=== PATIENT | female | born 1985 | race Hispanic/Latino ===

== ENCOUNTER 2018-05-10 16:41 | Emergency (ER) | payer OTHER, SELFPAY ==
[2018-05-10 16:49] VITALS: BP 121/74; PULSE 74; RESP 16; TEMP 36.7; O2SAT 98
--- NOTE | 2018-05-10 16:55 | ED.ABDPAIN ---
HPI - Abdominal Pain <DO Que Dumont Last Filed: 05/11/18 06:57> General Chief Complaint: Abdominal Pain Stated Complaint: STOMACH PAINS Time Seen by Provider: 05/10/18 16:55 Source: patient Mode of arrival: ambulatory Limitations: no limitations History of Present Illness HPI narrative: Otherwise healthy 32-year-old female here for evaluation of epigastric abdominal pain. She states it has been going on for the past 24-36 hr. Woke up yesterday morning with the symptoms. She does have a history of reflex which she states this feels somewhat different from her normal reflex. No fevers. No urinary symptoms. No change in bowel. Related Data Home Medications Medication Instructions Recorded Confirmed norgestimate-ethinyl estradiol 1 tab PO DAILY 05/10/18 [Sprintec (28)] Previous Rx's Medication Instructions Recorded cephalexin [Keflex] 500 mg PO QID 5 Days #20 cap 05/10/18 Allergies Allergy/AdvReac Type Severity Reaction Status Date / Time No Known Drug Allergies Allergy Verified 05/10/18 16:52 Review of Systems <DO Que Dumont Last Filed: 05/11/18 06:57> Constitutional Denies fever(s) and Denies headache(s) ENT Ears, Nose, Mouth, and Throat: Denies headache(s) Cardiovascular Denies chest pain and Denies dyspnea Respiratory Denies dyspnea Gastrointestinal Gastrointestinal: Reports abdominal pain, Denies change in stool character, Denies coffee ground emesis, Denies nausea and Denies vomiting Genitourinary Denies dysuria Musculoskeletal Denies myalgias and Denies arthralgias Integumentary/Breasts Denies rash Neurologic Denies headache(s) PFSH <DO Que Dumont Last Filed: 05/11/18 06:57> Medical History Healthy adult (Acute) Social History marital status: lives independently: Yes Social History marital status: lives independently: Yes Exam <DO Que Dumont Last Filed: 05/11/18 06:57> Initial Vital Signs Initial Vital Signs: Vital Signs Temperature 98.1 F 05/10/18 16:49 Pulse Rate 74 05/10/18 16:49 Respiratory Rate 16 05/10/18 16:49 Blood Pressure 121/74 05/10/18 16:49 Pulse Oximetry 98 05/10/18 16:49 Const General: cooperative, healthy appearing, comfortable, well developed, well groomed and No acute distress Orientation: alert, awake and oriented x3 HENMT Head: normal to inspection and normocephalic Resp Effort & Inspection: normal respiratory effort Auscultation: clear to auscultation bilaterally Cardio Rate: regular rate Rhythm: regular rhythm Pulses: radial pulses present GI Inspection: non-distended Palpation: soft and No firm Skin Lesions: no lesions Rashes: no rashes Neuro General: alert, awake and oriented x3 Extrem General: normal to inspection and capillary refill normal Psych Appearance: grossly normal and well kempt <Seymour Howard DO - Last Filed: 05/10/18 22:32> Initial Vital Signs Initial Vital Signs: Vital Signs Temperature 98.1 F 05/10/18 16:49 Pulse Rate 74 05/10/18 16:49 Respiratory Rate 16 05/10/18 16:49 Blood Pressure 121/74 05/10/18 16:49 Pulse Oximetry 98 05/10/18 16:49 Course <Felipe Gunderson DO - Last Filed: 05/11/18 06:57> Orders Ordered: Discontinued Medications Al Hydrox/Mg Hydrox/Simethicone 20 ml/ Lidocaine HCl 15 ml 0 ml PO NOW ONE Stop: 05/10/18 17:09 Last Admin: 05/10/18 17:45 Dose: 35 ml Vital Signs - 8 hr 05/10/18 16:49 05/10/18 17:50 05/10/18 18:00 Temperature 98.1 F Pulse Rate 74 71 70 Respiratory Rate 16 17 Blood Pressure 121/74 Blood Pressure [Right Arm] 107/71 117/77 Pulse Oximetry 98 99 99 05/10/18 19:00 05/10/18 20:39 Temperature Pulse Rate 73 70 Respiratory Rate 16 Blood Pressure Blood Pressure [Right Arm] 106/67 119/60 Pulse Oximetry 99 99 <Seymour Howard DO - Last Filed: 05/10/18 22:32> Orders Ordered: Discontinued Medications Al Hydrox/Mg Hydrox/Simethicone 20 ml/ Lidocaine HCl 15 ml 0 ml PO NOW ONE Stop: 05/10/18 17:09 Last Admin: 05/10/18 17:45 Dose: 35 ml Reevaluation(s) Reevaluation #1: Received in sign-out from Dr. Gunderson, I have performed an independent history and Physical. Her ultrasound has returned and is not demonstrating any surgical biliary troubles. She and have had all of their questions answered to their satisfaction, have been given return precautions and a verbalized understanding of these precautions. Vital Signs - 8 hr 05/10/18 16:49 05/10/18 17:50 05/10/18 18:00 Temperature 98.1 F Pulse Rate 74 71 70 Respiratory Rate 16 17 Blood Pressure 121/74 Blood Pressure [Right Arm] 107/71 117/77 Pulse Oximetry 98 99 99 05/10/18 19:00 05/10/18 20:39 Temperature Pulse Rate 73 70 Respiratory Rate 16 Blood Pressure Blood Pressure [Right Arm] 106/67 119/60 Pulse Oximetry 99 99 MDM - Abdominal Pain <Felipe Gunderson DO - Last Filed: 05/11/18 06:57> Lab Data Attestation: I reviewed the patient's lab results. Result diagrams: 05/10/18 17:30 05/10/18 17:30 Lab Results 05/10/18 05/10/18 05/10/18 Range/Units 17:30 17:30 17:30 WBC 4.2 L (4.5-11.0) X10^3/uL RBC 4.25 (4.0-5.2) X10^6/uL Hgb 11.3 L (12.0-16.0) g/dL Hct 35.4 L (36-46) % MCV 83.1 (80-100) fL MCH 26.6 (26-34) PG MCHC 31.9 (30-36) % RDW 15.4 H (11.6-14.8) % Plt Count 291 (150-400) X10^3/uL Neut % (Auto) 60.3 (50-75) % Lymph % (Auto) 30.8 (25-40) % Taylor % (Auto) 6.5 (3-14) % Eos % (Auto) 1.7 L (2-4) % Baso % (Auto) 0.7 (0-2) % Neut # (Auto) 2500 (4445-8945) /uL Lymph # (Auto) 1300 (8076-2375) /uL Taylor # (Auto) 300 (0-900) /uL Eos # (Auto) 100 (0-450) /uL Baso # (Auto) 0 (0-100) /uL Sodium 137 (137-145) mmol/L Potassium 4.0 (3.4-5.1) mmol/L Chloride 106 (98-107) mmol/L Carbon Dioxide 24 (22-32) mmol/L BUN 7 (7-17) mg/dL Creatinine 0.70 (0.52-1.04) mg/dL Estimated GFR > 60.0 (>60) mL/min BUN/Creatinine Ratio 10.0 (6-22) Glucose 98 (70-100) mg/dL Calcium 9.4 (8.4-10.2) mg/dL Total Bilirubin 0.2 (0.2-1.3) mg/dL AST 18 (14-36) IU/L ALT 13 (9-52) IU/L Alkaline Phosphatase 80 (38-126) U/L Total Protein 7.4 (6.3-8.2) g/dL Albumin 4.1 (3.5-5.0) g/dL Globulin 3.3 (1.7-4.1) g/dL Albumin/Globulin Ratio 1.2 (1.0-2.8) Lipase 81 (23-300) U/L Urine RBC (0-5/HPF) Urine WBC (0-5/HPF) Ur Squamous Epith Cells Amorphous Sediment Urine Bacteria (None) Ur Culture Indicated? 05/10/18 Range/Units 17:38 WBC (4.5-11.0) X10^3/uL RBC (4.0-5.2) X10^6/uL Hgb (12.0-16.0) g/dL Hct (36-46) % MCV (80-100) fL MCH (26-34) PG MCHC (30-36) % RDW (11.6-14.8) % Plt Count (150-400) X10^3/uL Neut % (Auto) (50-75) % Lymph % (Auto) (25-40) % Taylor % (Auto) (3-14) % Eos % (Auto) (2-4) % Baso % (Auto) (0-2) % Neut # (Auto) (0511-9353) /uL Lymph # (Auto) (8581-2355) /uL Taylor # (Auto) (0-900) /uL Eos # (Auto) (0-450) /uL Baso # (Auto) (0-100) /uL Sodium (137-145) mmol/L Potassium (3.4-5.1) mmol/L Chloride (98-107) mmol/L Carbon Dioxide (22-32) mmol/L BUN (7-17) mg/dL Creatinine (0.52-1.04) mg/dL Estimated GFR (>60) mL/min BUN/Creatinine Ratio (6-22) Glucose (70-100) mg/dL Calcium (8.4-10.2) mg/dL Total Bilirubin (0.2-1.3) mg/dL AST (14-36) IU/L ALT (9-52) IU/L Alkaline Phosphatase (38-126) U/L Total Protein (6.3-8.2) g/dL Albumin (3.5-5.0) g/dL Globulin (1.7-4.1) g/dL Albumin/Globulin Ratio (1.0-2.8) Lipase (23-300) U/L Urine RBC 1-5/hpf (0-5/HPF) Urine WBC 10-30/hpf H (0-5/HPF) Ur Squamous Epith Cells 5-10 /hpf H Amorphous Sediment 1+ Urine Bacteria Moderate (10-30) H (None) Ur Culture Indicated? Specimen cultured Point of care testing: Point of Care Testing Test Results Negative Urine Dip Bedside Urine Glucose Negative Bedside Urine Bilirubin - Negative Bedside Urine Ketone - Negative Urine Specific [place] 1.015 Bedside Urine Occult Blood +++ Bedside Urine pH 7.0 Bedside Urine Protein - Negative Bedside Urine Urobilinogen - Negative Bedside Urine Nitrite - Negative Bedside Urine Leukocytes ++ 125 Esterase MDM Narrative Medical decision making narrative: Labs unremarkable. Patient has many epi cells in the urine. Her symptoms not consistent with UTI. No relief with the GI cocktail. Will order right upper quadrant ultrasound. Care turned over to night provider at change of shift to continue to evaluate <Seymour Howard DO - Last Filed: 05/10/18 22:32> Lab Data Attestation: I reviewed the patient's lab results. Lab Results 05/10/18 05/10/18 05/10/18 Range/Units 17:30 17:30 17:30 WBC 4.2 L (4.5-11.0) X10^3/uL RBC 4.25 (4.0-5.2) X10^6/uL Hgb 11.3 L (12.0-16.0) g/dL Hct 35.4 L (36-46) % MCV 83.1 (80-100) fL MCH 26.6 (26-34) PG MCHC 31.9 (30-36) % RDW 15.4 H (11.6-14.8) % Plt Count 291 (150-400) X10^3/uL Neut % (Auto) 60.3 (50-75) % Lymph % (Auto) 30.8 (25-40) % Taylor % (Auto) 6.5 (3-14) % Eos % (Auto) 1.7 L (2-4) % Baso % (Auto) 0.7 (0-2) % Neut # (Auto) 2500 (0475-5447) /uL Lymph # (Auto) 1300 (2011-1263) /uL Taylor # (Auto) 300 (0-900) /uL Eos # (Auto) 100 (0-450) /uL Baso # (Auto) 0 (0-100) /uL Sodium 137 (137-145) mmol/L Potassium 4.0 (3.4-5.1) mmol/L Chloride 106 (98-107) mmol/L Carbon Dioxide 24 (22-32) mmol/L BUN 7 (7-17) mg/dL Creatinine 0.70 (0.52-1.04) mg/dL Estimated GFR > 60.0 (>60) mL/min BUN/Creatinine Ratio 10.0 (6-22) Glucose 98 (70-100) mg/dL Calcium 9.4 (8.4-10.2) mg/dL Total Bilirubin 0.2 (0.2-1.3) mg/dL AST 18 (14-36) IU/L ALT 13 (9-52) IU/L Alkaline Phosphatase 80 (38-126) U/L Total Protein 7.4 (6.3-8.2) g/dL Albumin 4.1 (3.5-5.0) g/dL Globulin 3.3 (1.7-4.1) g/dL Albumin/Globulin Ratio 1.2 (1.0-2.8) Lipase 81 (23-300) U/L Urine RBC (0-5/HPF) Urine WBC (0-5/HPF) Ur Squamous Epith Cells Amorphous Sediment Urine Bacteria (None) Ur Culture Indicated? 05/10/18 Range/Units 17:38 WBC (4.5-11.0) X10^3/uL RBC (4.0-5.2) X10^6/uL Hgb (12.0-16.0) g/dL Hct (36-46) % MCV (80-100) fL MCH (26-34) PG MCHC (30-36) % RDW (11.6-14.8) % Plt Count (150-400) X10^3/uL Neut % (Auto) (50-75) % Lymph % (Auto) (25-40) % Taylor % (Auto) (3-14) % Eos % (Auto) (2-4) % Baso % (Auto) (0-2) % Neut # (Auto) (4260-8969) /uL Lymph # (Auto) (1001-4310) /uL Taylor # (Auto) (0-900) /uL Eos # (Auto) (0-450) /uL Baso # (Auto) (0-100) /uL Sodium (137-145) mmol/L Potassium (3.4-5.1) mmol/L Chloride (98-107) mmol/L Carbon Dioxide (22-32) mmol/L BUN (7-17) mg/dL Creatinine (0.52-1.04) mg/dL Estimated GFR (>60) mL/min BUN/Creatinine Ratio (6-22) Glucose (70-100) mg/dL Calcium (8.4-10.2) mg/dL Total Bilirubin (0.2-1.3) mg/dL AST (14-36) IU/L ALT (9-52) IU/L Alkaline Phosphatase (38-126) U/L Total Protein (6.3-8.2) g/dL Albumin (3.5-5.0) g/dL Globulin (1.7-4.1) g/dL Albumin/Globulin Ratio (1.0-2.8) Lipase (23-300) U/L Urine RBC 1-5/hpf (0-5/HPF) Urine WBC 10-30/hpf H (0-5/HPF) Ur Squamous Epith Cells 5-10 /hpf H Amorphous Sediment 1+ Urine Bacteria Moderate (10-30) H (None) Ur Culture Indicated? Specimen cultured Point of care testing: Point of Care Testing Test Results Negative Urine Dip Bedside Urine Glucose Negative Bedside Urine Bilirubin - Negative Bedside Urine Ketone - Negative Urine Specific [place] 1.015 Bedside Urine Occult Blood +++ Bedside Urine pH 7.0 Bedside Urine Protein - Negative Bedside Urine Urobilinogen - Negative Bedside Urine Nitrite - Negative Bedside Urine Leukocytes ++ 125 Esterase Imaging Data US - abdomen: Radiologist's impression: [address] [address] Ultrasound Report Signed Patient: JOHN PEREZ MMR#: [id number] : 1985Acct:[id number] Age/Sex: 32 / FDate of Service: 05/10/18 Loc: ED Accession Number: [id number] Procedure: US abdomen complete Ordering Provider: Felipe Gunderson D.O. PROCEDURE: US ABDOMEN COMPLETE INDICATIONS: EPIGASTRIC PAIN TECHNIQUE: Real-time scanning was performed of the abdominal and retroperitoneal organs, with image documentation. COMPARISON: None. FINDINGS: Liver: Liver is normal in size and homogeneous in echotexture. Gallbladder: Unremarkable although contracted (only n.p.o. x3 hours). No sonographic Valle's sign Biliary ducts: Intrahepatic bile ducts are non-dilated. Extrahepatic bile duct caliber measures 5 mm. Normal is 6-7 mm or less in diameter, or 10 mm or less post-cholecystectomy. Pancreas: Visualized portions of the pancreas are sonographically normal. Spleen: Spleen is normal in size and homogeneous in echotexture. Kidneys: Kidneys are normal in size and echotexture. Right kidney measures 10.3 cm long; left kidney measures 9.8 cm long. No hydronephrosis or nephrolithiasis. No solid masses. Aorta: Visualized aorta is normal in caliber at less than 3 cm. however the distal abdominal aorta is not well-visualized sonographically. Iliacs: Obscured by shadowing bowel gas IVC: Intrahepatic inferior vena cava is patent. Miscellaneous: No free abdominal fluid. IMPRESSION: Overall, no acute findings. Normal appearance of the gallbladder although partially collapsed. If clinically necessary, a repeat study after minimum 8 hour n.p.o. status could be obtained. Dictated by: Luther Ovalle M.D. on 05/10/2018 at 19:44 Approved by: Luther Ovalle M.D. on 05/10/2018 at 19:46 MDM Narrative Medical decision making narrative: Multiple etiologies for patient's symptoms considered including: [Pancreatitis and gallbladder disease considered but thought less likely given lack of imaging or lab findings. Ulcer versus reflux or other related illness thought most likely given presentation of symptoms, link to diet and stress and history of the same.] Patient's symptoms improved or duration of stay with above-stated therapies. Findings and discharge diagnosis discussed with patient/family followed by verbalization of understanding Return precautions discussed with patient/family whom verbalize understanding. Discharge Plan Departure Patient Disposition: Home Clinical Impression: Acute epigastric pain UTI (urinary tract infection) Qualifiers: Urinary tract infection type: acute cystitis Hematuria presence: with hematuria Qualified Code(s): N30.01 - Acute cystitis with hematuria Discharge Date/Time: 05/10/18 20:38 Interventions: ED Discharge Assessment Last Done: 05/10/18 20:41 Instructions: DI for Epigastric Pain Activity Restrictions/Additional Instructions: 1. Drink plenty of fluids with frequent small sips. 2. For the next 24 hours a clear liquid diet is advised. After that please employ a brat diet which would include bananas, rice, apples, toast. 3. Please take medications as directed. Your prescription for antibiotics for your UTI has been electronically transmitted to your pharmacy in [place] on [address] at your request. Also, please get some Zantac, Pepcid, Nexium or similar to help with acid pain. Finally, some probiotics will likely help offset some of the negative effects antibiotics can have on your GI system 4. Please follow-up with your doctor in the next 1-2 days. Call the office for an appointment. 5. Please return to the emergency Department for any worsening or persistent symptoms, such as increasing pain or fever. Prescriptions: New cephalexin [Keflex] 500 mg capsule 500 mg PO QID 5 Days Qty: 20 RF: 0 No Action norgestimate-ethinyl estradiol [Sprintec (28)] 0.25-35 mg-mcg tablet 1 tab PO DAILY RF: 0
[2018-05-10] MEDS: MAG HYDROX/ALUMINUM/SIMETH SUS 20 ML, LIDOCAINE VISCOUS 2% 15 ML PO (17:45)
[2018-05-10 17:46] LABS: Add Manual Diff / Slide Review NO; Basophils Absolute Auto 0 /uL (0-100); Basophils Percent Auto 0.7 % (0-2); Eosinophils Absolute Auto 100 /uL (0-450); Eosinophils Percent Auto 1.7 % (2-4); Hematocrit 35.4 % (36-46); Hemoglobin 11.3 g/dL (12.0-16.0); Lymphocytes Absolute Auto 1300 /uL (1100-4500); Lymphocytes Percent Auto 30.8 % (25-40); Mean Corpuscular HGB Conc 31.9 % (30-36); Mean Corpuscular Hemoglobin 26.6 PG (26-34); Mean Corpuscular Volume 83.1 fL (80-100); Monocytes Absolute Auto 300 /uL (0-900); Monocytes Percent Auto 6.5 % (3-14); Neutrophils Absolute Auto 2500 /uL (1500-7000); Neutrophils Percent Auto 60.3 % (50-75); Platelet Count 291 X10^3/uL (150-400); Red Blood Cell Count 4.25 X10^6/uL (4.0-5.2); Red Cell Distribution Width 15.4 % (11.6-14.8); White Blood Cell Count 4.2 X10^3/uL (4.5-11.0)
[2018-05-10 17:50] VITALS: BP 107/71; PULSE 71; RESP 17; O2SAT 99
[2018-05-10 17:52] LABS: Amorphous Sediment Urine 1+; Bacteria Urine Moderate (10-30); Culture Indicated Urine Specimen Cultured; RBC Urine 1-5/HPF (0-5/HPF); Squamous Epithelial Cell Urine 5-10 /HPF; WBC Urine 10-30/HPF (0-5/HPF)
[2018-05-10 18:00] VITALS: BP 117/77; PULSE 70; O2SAT 99
[2018-05-10 18:02] LABS: Alanine Aminotransferase 13 IU/L (9-52); Albumin 4.1 g/dL (3.5-5.0); Albumin Globulin Ratio 1.2 (1.0-2.8); Alkaline Phosphatase 80 U/L (38-126); Aspartate Aminotransferase 18 IU/L (14-36); Bilirubin Total 0.2 mg/dL (0.2-1.3); Blood Urea Nitrogen 7 mg/dL (7-17); Calcium 9.4 mg/dL (8.4-10.2); Carbon Dioxide 24 mmol/L (22-32); Chloride 106 mmol/L (98-107); Estimated Glomerular Filt Rate > 60.0 mL/min (>60); Globulin 3.3 g/dL (1.7-4.1); Glucose 98 mg/dL (70-100); HEMOLYSIS < 15 (0-50); Lipase 81 U/L (23-300); Sodium 137 mmol/L (137-145); Total Protein 7.4 g/dL (6.3-8.2)
--- NOTE | 2018-05-10 18:10 | DI.US.S_ITS ---
PROCEDURE: US ABDOMEN COMPLETE INDICATIONS: EPIGASTRIC PAIN TECHNIQUE: Real-time scanning was performed of the abdominal and retroperitoneal organs, with image documentation. COMPARISON: None. FINDINGS: Liver: Liver is normal in size and homogeneous in echotexture. Gallbladder: Unremarkable although contracted (only n.p.o. x3 hours). No sonographic Valle's sign Biliary ducts: Intrahepatic bile ducts are non-dilated. Extrahepatic bile duct caliber measures 5 mm. Normal is 6-7 mm or less in diameter, or 10 mm or less post-cholecystectomy. Pancreas: Visualized portions of the pancreas are sonographically normal. Spleen: Spleen is normal in size and homogeneous in echotexture. Kidneys: Kidneys are normal in size and echotexture. Right kidney measures 10.3 cm long; left kidney measures 9.8 cm long. No hydronephrosis or nephrolithiasis. No solid masses. Aorta: Visualized aorta is normal in caliber at less than 3 cm. however the distal abdominal aorta is not well-visualized sonographically. Iliacs: Obscured by shadowing bowel gas IVC: Intrahepatic inferior vena cava is patent. Miscellaneous: No free abdominal fluid. IMPRESSION: Overall, no acute findings. Normal appearance of the gallbladder although partially collapsed. If clinically necessary, a repeat study after minimum 8 hour n.p.o. status could be obtained. Dictated by: Luther Ovalle M.D. on 05/10/2018 at 19:44 Approved by: Luther Ovalle M.D. on 05/10/2018 at 19:46
[2018-05-10 19:00] VITALS: BP 106/67; PULSE 73; O2SAT 99
[2018-05-10 20:39] VITALS: BP 119/60; PULSE 70; RESP 16; O2SAT 99
== END 2018-05-10 20:38 | disposition home or self-care (01) ==
PROVIDERS: Emergency Medicine; Emergency Provider Emergency Medicine
DX: N30.01 Acute cystitis with hematuria (principal); R10.9 Unspecified abdominal pain
CPT/HCPCS: 36591; 76700; 80053; 81003; 81015; 81025; 83690; 85025; 87086; 99283; 99284

== ENCOUNTER 2018-11-22 09:22 | Emergency (ER) | payer OTHER, SELFPAY ==
--- NOTE | 2018-11-22 09:26 | ED.BACK ---
HPI - Back Pain/Injury General Chief Complaint: Back Pain/Injury Stated Complaint: lower back pain Time Seen by Provider: 11/22/18 09:24 Source: patient Mode of arrival: wheelchair Limitations: no limitations History of Present Illness HPI Narrative: 33-year-old female here for evaluation of right-sided lower back pain which is radiating down to her right leg. Patient states that yesterday she lifted her daughter and felt a pop in her right side and since then has had pain. He has tried Aleve at home without any improvement. No urinary symptoms. Feels like she empties her bladder when she goes to the bathroom. No bowel changes. No saddle anesthesia. No fevers. Has never had anything like this in the past. Has difficult time with movement and lying on her right side in sitting up in palpating the area. Related Data Home Medications Medication Instructions Recorded Confirmed norgestimate-ethinyl estradiol 1 tab PO DAILY 05/10/18 [Sprintec (28)] Previous Rx's Medication Instructions Recorded cyclobenzaprine 10 mg PO TID PRN #12 tab 11/22/18 hydrocodone-acetaminophen [Darling] 1 tab PO Q4-6H PRN #14 tab 11/22/18 prednisone 40 mg PO DAILY 5 Days #10 tab 11/22/18 Allergies Allergy/AdvReac Type Severity Reaction Status Date / Time No Known Drug Allergies Allergy Verified 05/10/18 16:52 Review of Systems Constitutional Constitutional: Denies fever(s) ENT Ears, Nose, Mouth, and Throat: Denies neck pain Cardiovascular Cardiovascular: Denies chest pain and Denies dyspnea Respiratory Respiratory: Denies dyspnea Gastrointestinal Gastrointestinal: Denies abdominal pain, Denies nausea and Denies vomiting Genitourinary Genitourinary: Denies difficulty voiding, Denies post void dribbling, Denies dysuria, Denies urinary incontinence, Denies urinary hesitancy, Denies urinary urgency and Denies vaginal discharge Musculoskeletal Musculoskeletal: Reports back pain, Denies neck pain, Reports radiating pain into limb and Reports tingling Integumentary/Breasts Skin/Breast: Denies lesions and Denies rash Neurologic Neurologic: Denies behavioral changes, Reports tingling and Reports paresthesias Psychiatric Psychiatric: Denies behavioral changes Hematologic/Lymphatic Hematologic/Lymphatic: Denies easy bleeding and Denies easy bruising [facility] Medical History Healthy adult (Acute) Social History marital status: lives independently: Yes Smoking Status: Never smoker Social History marital status: lives independently: Yes Smoking Status: Never smoker Exam Initial Vital Signs Initial Vital Signs: Vital Signs Temperature 98.1 F 11/22/18 09:31 Pulse Rate 74 11/22/18 09:31 Respiratory Rate 16 11/22/18 09:31 Blood Pressure 123/71 11/22/18 09:31 Pulse Oximetry 98 11/22/18 09:31 Const General: cooperative, well developed and well groomed Orientation: alert and awake HENMT Head: normal to inspection and normocephalic Resp Effort & Inspection: normal respiratory effort Auscultation: clear to auscultation bilaterally Cardio Rate: regular rate Rhythm: regular rhythm GI Inspection: non-distended Palpation: soft, No firm and No tender Back/Spine/Pelvis Back: No CVA tenderness Thoracic/Lumbar Spine: lumbar spinal tenderness and straight leg raise positive Sacroiliac Joints: tender to palpation Skin Lesions: no lesions Rashes: no rashes Neuro General: alert, awake and oriented x3 Cognition: normal cognition Sensory Exam: no sensory deficits noted Extrem General: normal to inspection and capillary refill normal Other: Patient able to flex instead of the ankle. Has difficulty flexing standing at the knee and the hip secondary to pain Psych Appearance: grossly normal and well kempt Course Orders Ordered: Discontinued Medications Hydromorphone HCl (Dilaudid) 1 mg IM NOW ONE Stop: 11/22/18 09:42 Last Admin: 11/22/18 09:50 Dose: 0.5 mg Documented by: CHLOE Ketorolac Tromethamine (Toradol) 30 mg IM NOW ONE Stop: 11/22/18 09:42 Last Admin: 11/22/18 09:50 Dose: 30 mg Documented by: CHLOE Vital Signs Vital signs: Vital Signs - 8 hr 11/22/18 09:31 Temperature 98.1 F Pulse Rate 74 Respiratory Rate 16 Blood Pressure 123/71 Pulse Oximetry 98 MDM - Back Pain/Injury MDM Narrative Medical decision making narrative: Patient with approximately 24 hours of right-sided lower back pain with sciatic. She has tried Aleve at home with only minimal improvement. She has no red flag symptoms concerning for fracture, metastasis, epidural hematoma/abscess or cauda equina. Will hold on any radiologic studies for now. Patient was given Toradol and pain medications here in the ER. Will send home with symptom treatment. She was informed that this would take time to improve. She was informed to contact her primary provider for follow-up. She was given return precautions. She expressed understanding and agreement with plan. Discharge Plan Departure Patient Disposition: Home Clinical Impression: Lumbar radiculopathy Instructions: Back Pain (Alternative Therapy), DI for Back Pain With Sciatica, Activity May Be Better then Rest for Low Back Pain Recovery, Exercise May Reduce Risk of Low Back Pain Activity Restrictions/Additional Instructions: Recommend you take all the medications as directed. I also recommend that you continue to take any anti-inflammatories such as ibuprofen or Aleve or Naprosyn. Take these on a regular basis. Return to the emergency department for any new or worsening symptoms Prescriptions: New cyclobenzaprine 10 mg tablet 10 mg PO TID PRN (Reason: muscle spasm) Qty: 12 RF: 0 hydrocodone-acetaminophen [Darling] 5-325 mg tablet 1 tab PO Q4-6H PRN (Reason: pain) Qty: 14 RF: 0 prednisone 20 mg tablet 40 mg PO DAILY 5 Days Qty: 10 RF: 0 No Action norgestimate-ethinyl estradiol [Sprintec (28)] 0.25-35 mg-mcg tablet 1 tab PO DAILY RF: 0
[2018-11-22 09:31] VITALS: BP 123/71; PULSE 74; RESP 16; TEMP 36.7; O2SAT 98; BMI 25.0
[2018-11-22] MEDS: HYDROMORPHONE 1 MG INJ IM (09:50)
[2018-11-22] MEDS: KETOROLAC 60 MG/2 ML VIAL 30 MG IM (09:50)
--- NOTE | 2018-11-22 09:58 | PC.NURSE ---
Pt medicated for pain per EMR. pillow propped under back. warm blanket given, pt requested 0.5mg dilaudid IM instead of 1mg. made aware and OK'd. will monitor
[2018-11-22 11:08] VITALS: BP 116/72; PULSE 77; RESP 16; O2SAT 98
== END 2018-11-22 11:10 | disposition home or self-care (01) ==
PROVIDERS: Emergency Provider Emergency Medicine
DX: M54.16 Radiculopathy, lumbar region (principal); X50.0XXA Overexertion from strenuous movement or load, initial encounter
CPT/HCPCS: 96372; 99282; 99283; J1170; J1885

== ENCOUNTER 2019-11-18 00:08 | Emergency (ER) | payer OTHER, SELFPAY ==
[2019-11-18 00:19] VITALS: BP 114/64; PULSE 82; RESP 15; TEMP 37; O2SAT 98; BMI 27.4
--- NOTE | 2019-11-18 00:40 | ED_ITS ---
HPI - General Adult General Chief complaint: Vaginal Bleeding Stated complaint: spotting/bleeding since abd pain Time Seen by Provider: 11/18/19 00:11 Source: patient Mode of arrival: Family Vehicle Limitations: no limitations History of Present Illness HPI narrative: 34-year-old female here for evaluation of vaginal spotting. She states that this entire week she has had occasional vaginal spotting. She sta nathalie that it has been bright blood and also darker colored blood. Also has had some lower abdominal cramping. Took some test at home and they were negative. She is on control. Has been taking her control as directed. Has an appointment with her primary care doctor in approximately 1 week from now. Denies any urinary symptoms. No change in bowel habits. No fevers. At the time my evaluation patient has no symptoms. Related Data Home Medications Medication Instructions Recorded Confirmed norgestimate-ethinyl estradiol 1 tab PO DAILY 05/10/18 [Sprintec (28)] Previous Rx's Medication Instructions Recorded cyclobenzaprine 10 mg PO TID PRN #12 tab 11/22/18 hydrocodone-acetaminophen [[place]] 1 tab PO Q4-6H PRN #14 tab 11/22/18 Allergies Allergy/AdvReac Type Severity Reaction Status Date / Time No Known Drug Allergies Allergy Verified 05/10/18 16:52 Review of Systems Constitutional Constitutional: Denies fever(s) Cardiovascular Cardiovascular: Denies chest pain and Denies dyspnea Respiratory Respiratory: Denies dyspnea Gastrointestinal Gastrointestinal: Reports bloating and Denies change in bowel habits Genitourinary Genitourinary: Denies dysuria Genitourinary: Denies dysuria and Reports vaginal discharge Musculoskeletal Musculoskeletal: Denies arthralgias and Denies myalgias Integumentary/Breasts Skin/Breast: Denies rash Neurologic Neurologic: Denies behavioral changes Psychiatric Psychiatric: Reports anxiety and Denies behavioral changes Hematologic/Lymphatic Hematologic/Lymphatic: Denies easy bleeding and Denies easy bruising Allergic/Immunologic Allergic/Immunologic: Denies urticaria Patient History Medical History Healthy adult (Acute) Social History marital status: lives independently: Yes Smoking Status: Never smoker Smoking Status: Never smoker alcohol intake frequency: a few times a month Substance Use Type: does not use Exam Initial Vital Signs Initial Vital Signs: Vital Signs Temperature 98.6 F 11/18/19 00:19 Pulse Rate 82 11/18/19 00:19 Respiratory Rate 15 11/18/19 00:19 Blood Pressure 114/64 11/18/19 00:19 Pulse Oximetry 98 11/18/19 00:19 Const General: cooperative and comfortable Limitations: mental status not altered HENMT Head: normal to inspection and normocephalic Resp Effort & Inspection: normal respiratory effort Cardio Rate: regular rate GI Inspection: non-distended Palpation: soft, No firm and No tender Neuro General: patient alert and patient awake Cognition: normal cognition Speech: speech normal Extrem General: normal to inspection Psych Mood: anxious mood Course Vital Signs Vital signs: Vital Signs - 8 hr 11/18/19 00:19 Temperature 98.6 F Pulse Rate 82 Respiratory Rate 15 Blood Pressure 114/64 Pulse Oximetry 98 Medical Decision Making Lab Data Lab results reviewed: Yes I reviewed the patient's lab results. Labs: Point of Care Testing Test Results Negative Urine Dip Bedside Urine Glucose Negative Bedside Urine Bilirubin - Negative Bedside Urine Ketone - Negative Urine Specific [place] 1.015 Bedside Urine Occult Blood +/- Bedside Urine pH 6.0 Bedside Urine Protein - Negative Bedside Urine Urobilinogen - Negative Bedside Urine Nitrite - Negative Bedside Urine Leukocytes - Negative Esterase Point of care testing: Point of Care Testing Test Results Negative Urine Dip Bedside Urine Glucose Negative Bedside Urine Bilirubin - Negative Bedside Urine Ketone - Negative Urine Specific [place] 1.015 Bedside Urine Occult Blood +/- Bedside Urine pH 6.0 Bedside Urine Protein - Negative Bedside Urine Urobilinogen - Negative Bedside Urine Nitrite - Negative Bedside Urine Leukocytes - Negative Esterase [facility] [place] Narrative Medical decision making narrative: test is negative, urine negative except for blood which is not surprising giving her presenting symptoms. Had a benign abdominal exam. Feel that given her history and physical we can hold on radiologic studies for now. I feel this is just abnormal vaginal bleeding. Low suspicion for infection or surgical pathology. Will have her continue her control pills and also keep her scheduled appointment with her primary doctor next week. She was given return precautions. She expressed understanding and agreement. Discharge Plan Departure Patient Disposition: Home Clinical Impression: Abnormal vaginal bleeding Discharge Date/Time: 11/18/19 00:47 Instructions: DI for Vaginal Bleeding Activity Restrictions/Additional Instructions: Recommend that you continue to take your control on a daily basis. Keep your scheduled appointment with her primary doctor Wednesday. Return to the emergency department for any new or worsening symptoms Prescriptions: No Action norgestimate-ethinyl estradiol [Sprintec (28)] 0.25-35 mg-mcg tablet 1 tab PO DAILY RF: 0 cyclobenzaprine 10 mg tablet 10 mg PO TID PRN (Reason: muscle spasm) Qty: 12 RF: 0 hydrocodone-acetaminophen [[place]] 5-325 mg tablet 1 tab PO Q4-6H PRN (Reason: pain) Qty: 14 RF: 0
== END 2019-11-18 00:47 | disposition home or self-care (01) ==
PROVIDERS: Emergency Provider Emergency Medicine
DX: N93.9 Abnormal uterine and vaginal bleeding, unspecified (principal); F41.9 Anxiety disorder, unspecified
CPT/HCPCS: 81003; 81025; 99282